=== PATIENT | female | born 1990 | race Caucasian/White ===

== ENCOUNTER 2017-05-29 12:12 | Inpatient (IN) | payer MEDICAID ==
[~2017-05-29] VITALS: Ht 162.6 cm; Wt 82.3 kg
[2017-05-29 12:41] VITALS: BP 124/74; PULSE 90; RESP 18; Ht 162.6 cm; Wt 82.3 kg
--- NOTE | 2017-05-29 12:45 | TRIAGE ---
OB Triage Datetime Report Generated by CPN: 05/29/2017 12:45 Datetime: 05/29/2017 12:30 Stage of : OB Triage Maternal Assessment Level of Consciousness: Fully Conscious DTR's/Clonus: DTRs 2+; No Clonus Headache: Denies Blurred Vision: No Respiratory Effort: Unlabored; Regular Rhythm; Equal Expansion Breath Sounds, Left: Clear and Equal Breath Sounds, Right: Clear and Equal Nausea/Vomiting: Denies RUQ Epigastric Pain: Denies Lower Extremities Edema: Bilateral Lower Extremities Degree: 1+ Upper Extremities Edema: None Degree: None Facial Edema: None Temperature Route: Oral Fall Risk Assessment History of Falling: (0) No Secondary Diagnosis: (0) No Ambulatory Aid: (0) Bedrest/Nurse Assist IV Therapy: (0) No Gait: (0) Normal/Bedrest/Immobile Mental Status: (0) Oriented to Own Ability Fall Score: 0 Fall Risk Score Definition: No Risk: No action required Labor Evaluation Frequency: 5-10 Monitor Mode: External Duration (sec)2399: 60 Quality: Moderate Pattern: Normal: <= 5 Contractions in 10 Minutes Resting Tone [place]: Relaxed Heart Rate FHR Baseline Rate: 150 Monitor Mode: External US FHR Baseline Changes: No Baseline Change Variability: Moderate 6-25 bpm Accelerations: 15X15 Decelerations: None Category: Category I Pain Assessment Pain Scale: 5 Pain Presence: Intermittent Pain Type: Contraction Pain Location: Abdomen Pain Relief Measures: Comfort Measures Datetime: 05/29/2017 12:29 EGA: 40.0 Datetime: 05/29/2017 12:06 Time of Arrival: 05/29/2017 12:06 Arrived By: Ambulatory Arrived From: Home Chief Complaint: contraction started at 1030 evry 10 min Movement: Present Contractions: Regular Time Contractions Began: 05/29/2017 10:30 Rupture of Membranes: Ruptured Vaginal Bleeding: None Vaginal Discharge: Denies Recent Sexual Intercouse: Denies Abdominal Trauma: Not Applicable Patient Complaints: Contractions Time Provider Notified: 05/29/2017 12:40 Provider Notified: Ava Cleary Initial Plan: antonio/ vanessa
[2017-05-29] MEDS ORDERED: LACTATED RINGER'S 1,000 ML IV SCH (12:52)
[2017-05-29] MEDS ORDERED: AMPICILLIN 2 GM/NS (PMX) 100 ML IV ONE (13:00)
[2017-05-29] MEDS ORDERED: IBUPROFEN 600 MG TAB PO PRN (13:00)
[2017-05-29] MEDS ORDERED: LIDOCAINE 1% (MPF) 30 ML INJ INJ PRN (13:00)
[2017-05-29] MEDS ORDERED: CARBOPROST 250 MCG INJ IM PRN (13:00)
[2017-05-29] MEDS ORDERED: BUTORPHANOL 2 MG INJ IV PRN (13:00)
[2017-05-29] MEDS ORDERED: METHYLERGONOVINE 0.2 MG INJ IM PRN (13:00)
[2017-05-29] MEDS ORDERED: MISOPROSTOL 200 MCG TAB PR PRN (13:00)
[2017-05-29] MEDS ORDERED: OXYTOCIN 30 UNITS/LR 500 ML IV SCH ×3 (13:00→17:11)
[2017-05-29] MEDS ORDERED: OXYTOCIN 30 UNITS/LR 500 ML IV PRN (13:00)
[2017-05-29 13:41] LABS: BASOPHIL # 0.1 10^3/ul (0.0-0.1); BASOPHILS % 0.5 % (0.0-2.0); EOSINOPHILS # 0.1 10^3/ul (0.0-0.5); EOSINOPHILS % 0.6 % (0.0-7.0); HEMATOCRIT 37.9 % (37.0-47.0); HEMOGLOBIN 12.6 g/dl (12.0-16.0); LYMPHOCYTES # 2.5 10^3/ul (0.8-2.9); LYMPHOCYTES % 24.4 % (15.0-51.0); MEAN CORPUSCULAR HGB CONC 33.2 g/dl (32.0-37.0); MEAN CORPUSCULAR VOLUME 93.1 fl (82.0-101.0); MEAN PLATELET VOLUME 10.7 fl (7.4-10.4); MONOCYTE # 0.8 10^3/ul (0.3-0.9); NEUTROPHIL # 6.7 10^3/ul (1.6-7.5); NEUTROPHILS % 65.6 % (39.0-77.0); PLATELET COUNT 198 10^3/UL (140-415); RED BLOOD COUNT 4.07 10^6/ul (4.20-5.40); RED CELL DISTRIBUTION WIDTH 13.2 % (11.5-14.5); WHITE BLOOD COUNT 10.2 10^3/ul (4.8-10.8)
[2017-05-29 14:33] LABS: INR 0.87; PARTIAL THROMBOPLASTIN TIME 25.5 Sec (25.0-35.0); PROTIME 11.9 Sec (11.9-14.9); PT RATIO 0.9
--- NOTE | 2017-05-29 14:45 | LDN ---
Date/Time of Note Date/Time of Note DATE: 05/29/17 TIME: 14:42 Delivery Summary Normal spontaneous vaginal delivery of a baby boy from [place] to OA position shoulders delivered with no difficulty. Rest of the baby's body followed. Cord clamped after stopped pulsation. Placenta spontaneous expulsion inspected complete. Perineovaginal exam no laceration. Estimated blood loss 200 cc Weeks of Gestation 40 weeks Placenta Delivered: Spontaneously Meconium: none Episiotomy: No Laceration repair: None Anesthesia type: None (Non-) Estimated blood loss: 200 Sponge & Needle done & correct: Yes All needle counts correct: Yes Any foreign bodies felt in the: No Problems: Delivery Information Sex Infant Sex: male Apgars 1 Minute: 9 5 Minute: 9 Suctioning Nose & mouth suctioned at an: Yes Delee suction performed: No Umbilical Cord Umbilical cord with: 3 Vessels Cord presentations: nuchal cord Cord Blood was obtained: Yes DAE MITCHELL MD May 29, 2017 14:45
--- NOTE | 2017-05-29 14:48 | RADRPT ---
PROCEDURE: US OB. CLINICAL INDICATION: Size and dates , contractions TECHNIQUE: Multiple sonographic images of the pelvis and gravid uterus were obtained. The images were reviewed on a PACS workstation. COMPARISON: No prior studies are available for comparison. FINDINGS: Limited study. There is a single viable intrauterine gestation. Cardiac activity is present with 134 beats per min ivana. There is a vertex presentation. The placenta is right fundal. There is no evidence for an abruption or placenta previa. Measurements were made in order to determine age. The results are as follows: BPD =9.2 cm HC =33.3 cm AC =could not be measured FL =7.4 cm Estimated gestational age of approximately 37 weeks and 5 days based on ultrasound measurements. Clinical age: 40 weeks and 0 days. The estimated date of delivery is 06/14/17, based on ultrasound measurements. The EFW = not calculated by the technologist.. RPTAT: AA IMPRESSION: Single viable intrauterine gestation of approximately 37 weeks and 5 days based on ultrasound measu rements. Limited study. Abdominal circumference could not be measured. Head is poorly visualized. .Hernandez Levine MD, Date Time Electronically viewed and signed by .Hernandez Levine MD, on 05/29/2017 14:48 .S/
--- NOTE | 2017-05-29 14:50 | HP ---
Date/Time of Note Date/Time of Note DATE: 05/29/17 TIME: 14:46 OB - History Hx of Present Free Text/Dictation 26 years old female EDC May 29, 2017 admitted at 40 weeks gestation with a chief complaint of labor pain pelvic examination on admission cervix 5 cm dilated 100% effaced vertex at -2 station with intact membrane, patient transferred from triage to L&D anticipating vaginal delivery. Chief Complaint: Labor pain Estimated Due Date: May 29, 2017 : 3 Para: 2 Care: Good Care Ultrasounds: Normal mid trimester US Obstetrical Complications: None Past Family/Social History * Past Medical, Surgical, Family and Obstetric Histories reviewed from chart. Rubella: immune RPR/VDRL: Negative GBS Status: Negative HBsAG: Negative OB Admission Exam Vital Signs Vital Signs Vital Signs Date Time Temp Pulse Resp B/P Pulse Ox O2 Delivery O2 Flow Rate FiO2 05/29/17 12:41 98.2 90 18 124/74 98 Room Air Physical Exam HEENT: WNL Heart: Rhythm Normal Abdomen: WNL Extremities: Normal Reflexes: Normal Cervical Dilatation: 5cm Effacement: 100% Station: -1 Membranes: Intact Heart Rate: 130's Accelerations: Accelerations Present Decelerations: No Decelerations Varibility: Moderate Contractions on Admission: < 5 Minutes Apart Intensity: Moderate Last 72 hours Lab Results CBC & BMP 05/29/17 13:00 OB Assessment/Plan Reason for admission: other ( 40 weeks admitted in labor) Other plan: 26 years old EDC 29 May 2017 admitted to [facility] in active labor pelvic examination on admission cervix 5-6 cm dilated 100% effaced vertex at -1 -2 station with intact membrane patient transferred from triage unit to labor and delivery room anticipating vaginal delivery. DAE MITCHELL MD May 29, 2017 14:50
[2017-05-29 17:00] VITALS: BP 116/64; PULSE 81; RESP 16
[2017-05-29] MEDS ORDERED: AMPICILLIN 1 GM/NS (PMX) 50 ML IV SCH (17:00)
[2017-05-29] MEDS ORDERED: DIBUCAINE 1% 30 GM OINT TOP PRN (17:30)
[2017-05-29] MEDS ORDERED: HYDROCODONE/APAP (5/325) TAB PO PRN ×2 (17:30)
[2017-05-29] MEDS ORDERED: LANOLIN 7 GM TUBE TOP PRN (17:30)
[2017-05-29] MEDS ORDERED: WITCH HAZEL/GLYCERIN PAD PR PRN (17:30)
[2017-05-29] MEDS ORDERED: ACETAMINOPHEN 325 MG TAB PO PRN (17:30)
[2017-05-29] MEDS ORDERED: ONDANSETRON 4 MG INJ IV PRN (17:30)
[2017-05-29] MEDS ORDERED: BENZOCAINE 20% 56 ML SPRAY TOP PRN (17:30)
[2017-05-29] MEDS ORDERED: OXYCODONE/ASPIRIN (4.88/325) TAB PO PRN ×2 (17:30)
[2017-05-29] MEDS ORDERED: INFLUENZA VIRUS VACCINE 0.5 ML (DISPENSING) IM* ONE (18:00)
[2017-05-29] MEDS: IBUPROFEN 600 MG TAB PO SCH (18:00)
[2017-05-29 18:21] LABS: BARBITURATES Negative (NEGATIVE); BENZODIAZEPINES Negative (NEGATIVE); CANNABINOIDS Negative (NEGATIVE); COCAINE Negative (NEGATIVE); OPIATES Negative (NEGATIVE)
[2017-05-29 19:55] VITALS: BP 117/56; PULSE 86; RESP 18
[2017-05-29] MEDS: SENNA/DOCUSATE NA (8.6MG/50MG) TAB PO SCH (21:54)
[2017-05-30] MEDS: IBUPROFEN 600 MG TAB PO SCH ×4 (00:39→17:47)
[2017-05-30 00:40] VITALS: BP 118/58; PULSE 88; RESP 18
[2017-05-30 04:10] VITALS: BP 101/52; PULSE 70; RESP 18
[2017-05-30 08:30] VITALS: BP 97/81; PULSE 66; RESP 17
[2017-05-30 09:05] LABS: BASOPHIL # 0.1 10^3/ul (0.0-0.1); BASOPHILS % 0.5 % (0.0-2.0); EOSINOPHILS # 0.1 10^3/ul (0.0-0.5); EOSINOPHILS % 0.6 % (0.0-7.0); HEMOGLOBIN 11.9 g/dl (12.0-16.0); LYMPHOCYTES # 3.2 10^3/ul (0.8-2.9); MEAN CORPUSCULAR HEMOGLOBIN 31.6 pg (29.0-33.0); MEAN CORPUSCULAR VOLUME 93.1 fl (82.0-101.0); MONOCYTE # 0.8 10^3/ul (0.3-0.9); NEUTROPHIL # 7.3 10^3/ul (1.6-7.5); NEUTROPHILS % 63.3 % (39.0-77.0); PLATELET COUNT 192 10^3/UL (140-415); RED BLOOD COUNT 3.76 10^6/ul (4.20-5.40); RED CELL DISTRIBUTION WIDTH 13.2 % (11.5-14.5); WHITE BLOOD COUNT 11.5 10^3/ul (4.8-10.8)
[2017-05-30] MEDS: SENNA/DOCUSATE NA (8.6MG/50MG) TAB PO SCH ×2 (10:59→22:32)
[2017-05-30 16:00] VITALS: BP 99/58; PULSE 66; RESP 17
[2017-05-30 19:42] VITALS: BP 104/64; PULSE 65; RESP 18
--- NOTE | 2017-05-30 20:44 | PN ---
Date/Time of Note Date/Time of Note DATE: 05/30/17 TIME: 20:42 OB Subjective Subjective Subjective Post day 1 Doing Well Afebrile Ambulatory Chest Clear Breasts are soft , Nipples are intact Abdomen is soft Fundus is firm Moderate amount of lochia No evidence of infection No calf tenderness No ankle edema Laboratory Tests Test 05/30/17 08:28 White Blood Count 11.510^3/ul Red Blood Count 3.7610^6/ul Hemoglobin 11.9g/dl Hematocrit 35.0% Mean Corpuscular Volume 93.1fl Mean Corpuscular Hemoglobin 31.6pg Mean Corpuscular Hemoglobin Concent 34.0g/dl Red Cell Distribution Width 13.2% Platelet Count 99280^3/UL Mean Platelet Volume 11.0fl Neutrophils % 63.3% Lymphocytes % 28.0% Monocytes % 7.0% Eosinophils % 0.6% Basophils % 0.5% Nucleated Red Blood Cells % 0.0/100WBC Neutrophils # 7.310^3/ul Lymphocytes # 3.210^3/ul Monocytes # 0.810^3/ul Eosinophils # 0.110^3/ul Basophils # 0.110^3/ul Nucleated Red Blood Cells # 0.010^3/ul Current Medications Medications (Trade) Dose Ordered Sig/Tammi Route PRN Reason Start Time Stop Time Status Last Admin Dose Admin Lactated Ringer's 1,000 ml @ 125 mls/hr Q8H IV 05/29/17 12:52 05/29/17 17:13 DC 05/29/17 13:24 Ampicillin 100 ml @ 100 mls/hr ONCE ONCE IV 05/29/17 13:00 05/29/17 13:59 DC 05/29/17 13:25 Ampicillin (Ampicillin 1 Gm/ NS (Pmx)) 50 ml @ 100 mls/hr Q4H IV 05/29/17 17:00 05/29/17 17:13 DC Butorphanol Tartrate (Stadol) 2 mg Q2H PRN IV PAIN 05/29/17 13:00 05/29/17 17:13 DC Lidocaine 30 ml 30 ml ONCE PRN INJ EPISIOTOMY/TEARING 05/29/17 13:00 05/29/17 17:13 DC Oxytocin/Lactated Ringer's 500 ml @ 500 mls/hr ONCE POST IV 05/29/17 13:00 05/29/17 17:13 DC 05/29/17 14:58 Oxytocin/Lactated Ringer's 500 ml @ 125 mls/hr POST IV 05/29/17 13:00 05/29/17 17:13 DC 05/29/17 14:59 Ibuprofen 600 mg 600 mg ONCE PRN PO Mild Pain (Pain Score 1-3) 05/29/17 13:00 05/29/17 17:14 DC 05/29/17 14:44 Oxytocin/Lactated Ringer's 500 ml @ 0 mls/hr ONCE PRN IV For Hemorrhage Management 05/29/17 13:00 05/29/17 17:14 DC Methylergonovine Maleate (Methergine) 0.2 mg ONCE PRN IM VAGINAL BLEEDING 05/29/17 13:00 05/29/17 17:14 DC Carboprost Tromethamine (Hemabate) 250 mcg ONCE PRN IM VAGINAL BLEEDING 05/29/17 13:00 05/29/17 17:14 DC Misoprostol 1000 mcg 1,000 mcg ONCE PRN MT VAGINAL BLEEDING 05/29/17 13:00 05/29/17 17:14 DC Oxytocin/Lactated Ringer's 500 ml @ 50 mls/hr Q10H IV 05/29/17 17:11 05/30/17 03:10 DC 05/29/17 19:59 Ibuprofen (Motrin) 600 mg Q6 PO 05/29/17 18:00 05/30/17 12:40 Acetaminophen (Tylenol Tab) 650 mg Q4H PRN PO PAIN LEVEL 1-5 05/29/17 17:30 Acetaminophen/ Hydrocodone Bitart ([place] (5/325)) 1 tab Q4H PRN PO PAIN LEVEL 1-5 05/29/17 17:30 Acetaminophen/ Hydrocodone Bitart ([place] (5/325)) 2 tab Q4H PRN PO PAIN LEVEL 6-10 05/29/17 17:30 Oxycodone/Aspirin (Percodan) 1 tab Q3H PRN PO PAIN LEVEL 1-5 05/29/17 17:30 Oxycodone/Aspirin (Percodan) 2 tab Q3H PRN PO PAIN LEVEL 6-10 05/29/17 17:30 Ondansetron HCl (Zofran Inj) 4 mg Q6H PRN IV NAUSEA AND/OR VOMITING 05/29/17 17:30 Senna/Docusate Sodium (Senokot-S) 1 tab BID PO 05/29/17 21:00 05/30/17 10:59 Witch Saritha/ Glycerin (Tucks Pads) 1 pad BEDSIDE MEDICATION PRN MT HEMORRHOID/EPISIOTMY PAIN 05/29/17 17:30 Benzocaine (Dermoplast [place]) 1 spray BEDSIDE MEDICATION PRN TOP HEMORRHOID/EPISIOTMY PAIN 05/29/17 17:30 Dibucaine (Nupercainal) 1 applic BEDSIDE MEDICATION PRN TOP HEMORRHOID/EPISIOTMY PAIN 05/29/17 17:30 Lanolin (Ujx-D-Gbiben) 1 applic BEDSIDE MEDICATION PRN TOP BEDSIDE FOR MENDOZA TO NIPPLES 05/29/17 17:30 Measles/Mumps/ Rubella Vaccine Live (Mmr Ii Vaccine) 0.5 ml ONCE ONCE SC* 05/31/17 09:00 05/31/17 09:01 Influenza Virus Vaccine (Fluzone) 0.5 ml ONCE ONCE IM* 05/29/17 18:00 05/29/17 18:01 DC 05/30/17 15:43 New born is doing well, Breast feeding ALEXANDRE DYSON MD May 30, 2017 20:44
[2017-05-31] MEDS: IBUPROFEN 600 MG TAB PO SCH ×4 (00:44→17:35)
[2017-05-31 04:15] VITALS: BP 95/54; PULSE 72; RESP 18
[2017-05-31 08:10] VITALS: BP 96/57; PULSE 62; RESP 18
[2017-05-31] MEDS ORDERED: MEASLES,MUMPS,RUBELLA VACCINE INJ SC* ONE (09:00)
[2017-05-31] MEDS: SENNA/DOCUSATE NA (8.6MG/50MG) TAB PO SCH (09:43)
--- NOTE | 2017-05-31 09:54 | PD.PPDC ---
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
--- NOTE | 2017-05-31 09:56 | DS ---
Date/Time of Note Date/Time of Note DATE: 05/31/17 TIME: 09:55 Discharge Summary Admission/Discharge Info Admit Date/Time May 29, 2017 at 12:40 Discharge Date/Time May 31, 2017 at 9:50 AM Discharge Diagnosis Day 2 post normal vaginal delivery Patient Condition: Good Procedures Normal vaginal delivery Hx of Present Illness Term admitted to the hospital for delivery Hospital Course Satisfactory uneventful Follow-up Plan instruction given recommended to make appointment to be seen at the clinic in 2 weeks Primary Care Provider Care Physician No Primary Time spent on discharge: < 30 minutes DAE MITCHELL MD May 31, 2017 09:56
[2017-05-31 16:00] VITALS: BP 107/55; PULSE 64; RESP 18
== END 2017-05-31 18:30 | disposition home or self-care (01) | DRG 775 ==
LOC: L-D 12:12 → OBT 12:12 → L-D 12:18 → OBT 12:53 → PP1 17:09
PROVIDERS: ADMIT Obstetrics & Gynecology; ATTEND Obstetrics & Gynecology
PROC: 10E0XZZ Delivery of Products of Conception, External Approach (ICD-10-PCS; principal; 2017-05-29)
DX: O80 Encounter for full-term uncomplicated delivery (principal); Z37.0 Single live birth; Z3A.40 40 weeks gestation of pregnancy
CPT/HCPCS: 76815; 80307; 85025; 85610; 85730; 86592; 86703; 86762; 86850; 86900; 86901; 87340; 90686; G0463; J0290; J2590; J7120

== ENCOUNTER 2017-10-13 18:41 | Emergency (ER) | END 2017-10-13 23:17 | disposition home or self-care (01) ==